=== PATIENT | male | born 1960 | race Caucasian/White ===

== ENCOUNTER 2018-04-14 08:46 | Emergency (ER) | payer OTHER ==
[~2018-04-14] VITALS: Ht 182.9 cm; Wt 117.0 kg
[~2018-04-14 08:46] MED LIST: ASPIRIN325 MG PO; COREG3.125 M1 PO; CYMBALTA60 MG PO; LANTUS 10100 UNITS/ SC; LIPITOR80 MG PO; METFORMIN HCL1000 M1 PO; NOVOLOG 10100 UNITS/ SC
[2018-04-14 08:55] VITALS: BP 193/99
[2018-04-14 09:14] LABS: APPEARANCE CLOUDY ((CLEAR)); BILIRUBIN NEGATIVE; BLOOD LARGE; COLOR AMBER ((YELLOW)); GLUCOSE (STRIP) >=500; KETONES 5; LEUKOCYTES LARGE; NITRITE NEGATIVE; PROTEIN (STRIP) 100; SPECIFIC GRAVITY 1.029 (1.000-1.030); UROBILINOGEN 0.2 MG/DL (0.2-1.0)
[2018-04-14] MEDS ORDERED: DOXYCYCLINE HY100 MG PO (09:27)
[2018-04-14 10:10] LABS: BACTERIA 1+ /HPF; EPITHELIAL CELLS NONE SEEN /HPF; MUCUS NONE SEEN /LPF; UCUL ADDED? YES; WHITE BLOOD CELLS TNTC /HPF (0-5)
== END 2018-04-14 09:43 | disposition home or self-care (01) ==
LOC: EME 08:46
DX: A64 Unspecified sexually transmitted disease (principal); N34.2 Other urethritis; I10 Essential (primary) hypertension; E78.5 Hyperlipidemia, unspecified; E11.9 Type 2 diabetes mellitus without complications; Z79.4 Long term (current) use of insulin; Z79.84 Long term (current) use of oral hypoglycemic drugs; Z79.82 Long term (current) use of aspirin
CPT/HCPCS: 81003; 87086; 87106; 99281; 99284; J0696

== ENCOUNTER 2018-06-26 03:48 | Emergency (ER) | payer OTHER ==
[~2018-06-26] VITALS: Ht 167.6 cm; Wt 113.5 kg
[~2018-06-26 03:48] MED LIST changes: +DOXYCYCLINE HY100 MG PO
[2018-06-26 04:14] LABS: HEMATOCRIT 45.6 % (38.0-50.0); HEMOGLOBIN 15.8 G/DL (12.5-16.6); MCH 30.9 PG (29.0-34.0); MCHC 34.6 G/DL (30.0-36.0); MCV 89.2 FL (86-99); PLATELET COUNT 322 K/uL (156-360); RBC DIS.WIDTH-CV 12.7 % (11.8-14.6); RBC DIS.WIDTH-SD 41.6 % (39-53); RED BLOOD COUNT 5.11 M/uL (4.00-5.50)
[2018-06-26 04:17] LABS: SOURCE URINE
[2018-06-26 04:21] LABS: APPEARANCE CLOUDY ((CLEAR)); BILIRUBIN NEGATIVE; BLOOD LARGE; COLOR YELLOW ((YELLOW)); GLUCOSE (STRIP) >=500; KETONES 20; LEUKOCYTES LARGE; NITRITE NEGATIVE; PROTEIN (STRIP) 100; SPECIFIC GRAVITY 1.039 (1.000-1.030); UROBILINOGEN 0.2 MG/DL (0.2-1.0)
[2018-06-26 04:25] LABS: ALBUMIN 4.1 g/dL (3.2-4.8)
[2018-06-26 04:26] LABS: CHLORIDE 103 mEq/L (99-109); POTASSIUM 3.8 mEq/L (3.7-5.4); SODIUM 137 mEq/L (136-147)
[2018-06-26 04:28] LABS: GLUCOSE 311 mg/dL (70-99); TOTAL PROTEIN 7.3 g/dL (6.4-8.3)
[2018-06-26 04:30] LABS: TOTAL BILIRUBIN 0.7 mg/dL (0.0-1.0)
[2018-06-26 04:31] LABS: ALKALINE PHOSPHATASE 83 IU/L (3-129)
[2018-06-26 04:32] LABS: CREATININE 0.8 mg/dL (0.6-1.3); GFR ESTIMATE (CALCULATED) > 59 mL/min/ (58.99-99999)
[2018-06-26 04:33] LABS: AST (GOT) 11 IU/L (2-34); UREA NITROGEN (BUN) 14 mg/dL (9-23)
[2018-06-26 04:35] LABS: ALT (GPT) 10 IU/L (3-49)
[2018-06-26 04:45] LABS: BACTERIA 1+ /HPF; EPITHELIAL CELLS NONE SEEN /HPF; MUCUS NONE SEEN /LPF; RED BLOOD CELLS TNTC /HPF (0-5); UCUL ADDED? YES; WHITE BLOOD CELLS TNTC /HPF (0-5)
[2018-06-26] MEDS ORDERED: CIPRO500 MG PO (05:06)
[2018-06-26 05:16] VITALS: BP 146/95
[2018-06-30 11:43] LABS: CHLAMYDIA TRACHOMATIS NEGATIVE; NEISSERIA GONORRHOEAE NEGATIVE
== END 2018-06-26 05:17 | disposition home or self-care (01) ==
LOC: EME 03:48
PROVIDERS: Emergency Medicine
DX: N39.0 Urinary tract infection, site not specified (principal); E11.9 Type 2 diabetes mellitus without complications; E78.5 Hyperlipidemia, unspecified; I10 Essential (primary) hypertension; Z79.4 Long term (current) use of insulin
CPT/HCPCS: 80053; 81003; 85027; 87086; 87491; 87591; 99281; 99283